=== PATIENT | female | born 1970 | race Caucasian/White ===

== ENCOUNTER 2016-09-02 14:51 | Emergency (ER) | payer BC ==
--- NOTE | 2016-09-06 18:43 | ER ---
ADMIT: 09/02/2016 RM/LOC: ER [facility] MR#: [id number] [address] [id number] YAW BARNETT [address] [place] [address] Emergency Room Report SEX: F AGE: 46 : 1970 DATE: 09/02/2016 Patient presents to emergency room with a cough, dizziness, and weakness. She has had pain on inspiration, productive cough, and chills. She is allergic to Nubain. Her last intake of medication is Lasix p.r.n. and Celexa. PAST MEDICAL HISTORY: Asthma like symptoms or reactive airway disease, she has had T and A, breast reduction, aayush, varicose veins, and tubal ligation. SOCIAL HISTORY: She drinks alcohol occasionally. PHYSICAL EXAMINATION: She is a bit anxious. Looks like she is not feeling too well but her vitals are within normal limits and she is having good oxygen intake at 100%. The x-ray does show some perihilar inflammation that could be related to acute bronchitis. Because she has structural problems already with her lung, she is going to be receiving a Z-Ryan, albuterol inhaler, and prednisone. She will then follow up with the primary provider and rest, hydration for the weekend. LAKEISHA Zavala / Ralf Oseguera MD / modl JOB #: [id number] CC: Ralf Oseguera MD, Attending Physician Sonu Beckford MD, Family Physician
== END 2016-09-02 17:30 | disposition home or self-care (01) ==
LOC: ER 14:51
DX: J20.9 Acute bronchitis, unspecified (principal); Z88.8 Allergy status to other drugs, medicaments and biological substances; Z79.899 Other long term (current) drug therapy; Z98.890 Other specified postprocedural states